=== PATIENT | female | born 1995 | race Caucasian/White ===

== ENCOUNTER 2024-03-18 14:24 | Outpatient (CLI) | payer BC, SELFPAY | END 2024-03-18 14:25 | disposition home or self-care (01) | PROVIDERS: Visit Provider Advanced Practice Midwife | DX: N39.0 Urinary tract infection, site not specified (principal); F19.11 Other psychoactive substance abuse, in remission | CPT/HCPCS: 80306; 87086 ==

== ENCOUNTER 2024-04-21 13:33 | Outpatient (CLI) | payer BC, SELFPAY | END 2024-04-21 13:34 | disposition home or self-care (01) | LOC: NFLDREF 18:55 | PROVIDERS: Visit Provider Obstetrics & Gynecology | DX: Z34.83 Encounter for supervision of other normal pregnancy, third trimester (principal) | CPT/HCPCS: 82728 ==

== ENCOUNTER 2024-05-28 16:25 | Inpatient (IN) | payer BC, SELFPAY ==
--- NOTE | 2024-05-28 16:43 | P.LDBA_ITS ---
Subjective History of Present Illness Time Seen by Provider: 16:43 Date Seen: 05/28/24 Narrative: Patient is being admitted to Labor and Delivery for induction of labor for late term gestation. She is a 28 year old at 40w6d gestation. Her full history and physical was dictated by myself on 04/29/2024. Please see this for details. Gretchen is feeling well today with no acute concerns. Denies regular/painful uterine contractions, vaginal bleeding or leaking of fluid. Endorses active movement. Denies chest pain, dyspnea, nausea/vomiting, bowel or bladder concerns, fevers or chills. Specific Issues/Plans (hx of ectopic) FOB: Ori, primarily Beninese speaking, Baby boy: Gabe Positive for marijuana at [facility], denies use since. -Does have medical card for hx of PTSD.? -UDS at transfer visit: Negative Hx of meth use, clean for last 2 years after treatment program. Negative for at [facility] and at transfer visit. -still attends meetings, is on probation -does not have custody of her first child r/t this Hx of depression & anxiety, stable at [facility] w/o medications?(medications started w/ treatment plan) Multiple UTIs in -X5, each treated with a different antibiotic (macrobid, fosfomycin, Amox/Clav). All E. Coli except the last. -UC repeated at transfer visit per her request, does not generally have symptoms (Negative) Smoker -decreased from 1/2 pack to 3 cigs/day -encouraged vitamin C GBS positive in urine 01/05 -Plan prophylaxis in labor Desires permanent sterilization - Consent signed at [facility] in February. Reaffirmed on 05/19/24 - Hx of salpingectomy for ruptured ectopic, side unknown Needs PP pap - 11/07, NIL, HPV + (other types) H&P performed by Dr. Pham on 04/29 Records from [facility]ILLER: ? LMP 08/27/23? Positive for marijuana at [facility], denies use since. Does have medical card for hx of PTSD.? Planning epidural for pain management.? Hx of salpingectomy for hx of ruptured ectopic, side unknown? Declined flu shot and genetic screening at [facility].? Hx of meth use, clean for last 2 years. New partner for this , he is from [place] and has 6 children from previous relationships.? Hx of depression & anxiety, stable at [facility] w/o medications? ? IMAGING:??? 1st trimester: 11/14/23. Dated by 12.6 wk u/s, JENNIFER 05/22/24. (by LMP, JENNIFER 06/02/24)? Anatomy scan:? No abnormalities noted. Anterior placenta. EFW 19%. Vtx. 3 vessel cord. Normal fluid.? ? ?OB Labs 11/14/23:?Blood type: O+, antibody screen negative?? ?Hgb : 12.6? ?Platelets: 235? ?Rubella: positive? ?RPR: non-reactive?? ?HBsAg: negative? ?HIV: negative?? ?GC/Chlamydia: negative/negative? ?Pap (11/14/23): NIL,HPV other types positive, repeat pap/HPV PP? UDS: positive for marijuana? ?1hr gtt: 136 3hr: fasting 87, 1 hr - 170, 2 hr - 142, 3 hr - 87, all WNL hgb: 11.8 syphlilis - neg Did get tdap at last visit? Urine cultures:? 02/27/24 - Pseudomonas aeruginosa. Treated with Fosfomycin 01/30/24 - E. Coli noted? 01/02/24 - E. Coli noted? 11/14/23 - E. Coli noted ? treated with macrobid? 09/23/23 E. Coli noted? ? OB - Problem Based A/P Additional Plan (1) care: Status: Acute (2) Anemia: Status: Acute (3) Marijuana use: Problem details: Positive at [facility], stopped in . Has medical card Status: Acute (4) Methamphetamine abuse in remission: Problem details: Clean X 2 years May, still attends meetings Status: Acute (5) Smoker: Status: Acute Plan Gretchen is a 28-year-old admitted at 40w6d GA for IOL in the setting of late term gestation. is complicated by tobacco use disorder, history of substance use disorder (clean from meth x2 years, stopped THC in September), PTSD, depression, anxiety, multiple UTIs in , GBS positivity. - Start IOL with cook catheter, low dose pitocin overnight per protocol - GBS positive on a previous UC, start ampicillin with pitocin or ROM - BT O+, obtain T/S on admission - Recommend UDS on admission for history of substance use disorder. Patient expressed understanding and verbal consent provided. - Patient desires surgical sterilization, plan tubal. She did have a prior salpingectomy for an ectopic , side unknown. Plan NPO after delivery. OB Exam Physical Exam Narrative: General: Alert and oriented, no acute distress Psych: Appropriate mood and affect Abdomen: Gravid. EFW 3600g by Baldo'olivia. Cervix: 2/50/-2, cook catheter placed without difficulty heart rate: Category 1. Baseline is 140 beats per minute, moderate variability, accelerations present, decelerations absent Palouse: Milady q8m, non painful
[2024-05-28 16:58] VITALS: BMI 33.6
[2024-05-28 17:00] VITALS: BP 130/83; PULSE 97; RESP 16; TEMP 36.6
[2024-05-28 18:15] LABS: Amphetamine Screen Urine Negative (Negative); Barbiturate Screen Urine Negative (Negative); Benzodiazepines Screen Urine Negative (Negative); Cannabinoid Screen Urine Negative (Negative); Cocaine Screen Urine Negative (Negative); Methadone Screen Urine Negative (Negative); Methamphetamines Screen Urine Negative (Negative); Opiate Screen Urine Negative (Negative); Oxycodone Screen Urine Negative (Negative); Phencyclidine Screen Urine Negative (Negative); Tricyclic Antidepressant Urine Negative (Negative)
[2024-05-28 19:20] VITALS: BP 124/57; PULSE 73; TEMP 36.7
[2024-05-28 21:14] LABS: Basophils Percent Auto 0.3 % (0.0-3.0); Eosinophils Percent Auto 0.9 % (0.0-7.0); Hematocrit 36.1 % (33.0-51.0); Hemoglobin* 12.1 gm/dL (12.0-16.0); Immature Granulocytes Pct Auto 0.5 %; Lymphocytes Percent Auto 15.2 % (20-44); Mean Corpuscular HGB Conc 34 gm/dL (32-36); Mean Corpuscular Hemoglobin 27 pg (26-34); Mean Corpuscular Volume 80 fL (80-100); Monocytes Percent Auto 5.2 % (0.0-11.0); Neutrophils Percent Auto 77.9 % (42.0-72.0); Platelet Count* 232 K/uL (140-440); RDW Coefficient of Variation % 14.2 % (11.5-15.5); White Blood Count* 18.73 K/uL (4.50-11.00)
[2024-05-28 21:34] LABS: Slide Review Reflex No
[2024-05-28] MEDS: hydrOXYzine pamoate 25 MG CAPSULE 100 MG PO (22:13)
[2024-05-28] MEDS: MORPHINE 10 MG/ML inj IM (22:14)
[2024-05-29] VITALS (90 sets, daily range): BP systolic 76–129; BP diastolic 37–74; PULSE 56–115; RESP 16–18; TEMP 36.4–37.1; O2SAT 90–100
[2024-05-29] MEDS: LACTATED RINGERS 1000 ML 1,000 ML 125 ML IV ×2 (00:05→10:03)
[2024-05-29] MEDS: AMPICILLIN 2 GM in 0.9 % SODIUM CHLORIDE Mini-bag 100 ML IVPB (00:06)
[2024-05-29] MEDS: OXYTOCIN 30 unit/500 ML in NS 30 UNIT/500 ML BAG IVPB (00:06)
[2024-05-29] MEDS: AMPICILLIN 1 GM in 0.9 % SODIUM CHLORIDE Mini-bag 100 ML IVPB ×3 (03:54→12:23)
[2024-05-29] MEDS: LACTATED RINGERS 1000 ML 1,000 ML IV ×2 (04:15→05:47)
[2024-05-29] MEDS: ROPIVACAINE 0.2% 100 ml 100 ML 12 MG EPIDURAL (06:24)
[2024-05-29] MEDS: BUPIVACAINE 0.25% PF 10 ML 10 ML ML EPIDURAL (06:25)
--- NOTE | 2024-05-29 07:19 | P.ANBPRC_ITS ---
[facility] Medical History Anxiety and depression ?F41.9 - Anxiety disorder, unspecified (ICD-10) ?F32.A - Depression, unspecified (ICD-10) Ectopic ?O00.90 - Unspecified ectopic without intrauterine (ICD- 10) Surgical History History of salpingectomy ?Z90.79 - Acquired absence of other genital organ(s) (ICD-10) Badger teeth extracted ?K08.409 - Partial loss of teeth, unspecified cause, unspecified class (ICD- 10) Family History Mother Lung cancer Social History Narrative: SOCIAL? ? Education: high school ? ? 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 ? Partner: Ori, fork heavy lift rigger, not . New partner for this , he is from [place] and has 6 children [facility]?? ? Lives with: Ori. Does not have custody of previous child. R/t previous meth use. ? ? Pets: denies? ? Abuse: Denies past. Unable to assess current, partner present? ? Special Diet: Denies? ? Ok with a blood transfusion: yes? ? Culture or church beliefs: denies? RISK FACTORS? ? Exercise Times/wk: denies? ? Depression/Anxiety: previously - put on medication when she entered a treatment program. Has not taken medication in 2 years, feels stable at this time. Does not currently meet with counselors, but does attend meetings and is on probation. SPIKE: 3 PHQ 9: 2? ? Seat Belt Use: Routinely ? Smoking: Currently smokes. About 3 cigs/day. Previously smoked 1/2 a pack a day. Encouraged to take Vitamin C. Alcohol/day: Denies while ? ? Caffeine: 1 cup coffee or 2 sodas a day? ? Drug Use: Hx of meth, in recovery X 2 years this May. Marijuana, stopped in September. ? ? What is your current living situation?: I presently have a place to live Problems where you live: no known problems In the past 12 months, utilities in danger of being shut off: no In past 12 months, lack of transportation kept you from medical appts, meetings, work, or getting things needed for daily living: no In the past 12 mos, have been you worried that your food would run out before you had money to buy more?: never true In the past 12 mos, the food you bought just didn't last and you didn't have money to buy more?: never true Smoking Status: Current every day smoker How often does anyone, including family, friends and others, physically hurt you : never How often does anyone, including family, friends and others, insult or talk down to you: never How often does anyone, including family, friends and others, threaten you with harm: never How often does anyone, including family, friends and others, scream or curse at you: never Little interest or pleasure in doing things: not at all Feeling down, depressed, or hopeless: not at all Meds Home Medications and Allergies Home Medications ?Medication ?Instructions ?Recorded ?Confirmed ?Type vits 75-iron 28 mg-folic 1 pkg PO DAILY 03/18/24 05/28/24 History acid 800 mcg-omega3 440 mg oral pack (One Daily ) calcium carbonate (Tums) 200 mg PO BID 04/21/24 05/28/24 History Allergies Allergy/AdvReac Type Severity Reaction Status Date / Time No Known Drug Allergies Allergy Verified 05/27/24 13:37 Results Labs Labs: Laboratory Results - last 24 hr 05/28/24 05/28/24 17:53 21:10 WBC 18.73 H RBC 4.50 Hgb 12.1 Hct 36.1 MCV 80 MCH 27 MCHC 34 RDW Coeff of Josee 14.2 Plt Count 232 Neut % (Auto) 77.9 H Lymph % (Auto) 15.2 L Ogle % (Auto) 5.2 Eos % (Auto) 0.9 Baso % (Auto) 0.3 Neut # (Auto) 14.60 H Lymph # (Auto) 2.80 Ogle # (Auto) 1.00 H Eos # (Auto) 0.20 Baso # (Auto) 0.10 Abs Immat Gran (auto) 0.10 Imm/Tot Granulo (auto) 0.5 Urine Opiates Screen Negative Ur Oxycodone Screen Negative Urine Methadone Screen Negative Ur Barbiturates Screen Negative U Tricyclic Antidepress Negative Ur Phencyclidine Scrn Negative Ur Amphetamines Screen Negative U Methamphetamines Scrn Negative U Benzodiazepines Scrn Negative Urine Cocaine Screen Negative U Marijuana (THC) Screen Negative Ur Drug Screen Comment See Note Blood Type O Positive Antibody Screen NEGATIVE Vital Signs Vital Signs: Last Vital Signs Temp 97.9 F 05/29/24 06:27 Pulse 76 05/29/24 07:15 Resp 16 05/28/24 17:00 BP 108/58 L 05/29/24 07:15 Pulse Ox 98 05/29/24 07:15 Weight: 80.739 kg Height: 154.94 cm Anesthesia Procedures Epidural Insertion Patient Location: OB Start Time: 06:00 Stop Time: 06:45 Start Date: 05/29/24 Stop Date: 05/29/24 Reason for Block: procedure for pain Patient Position: sitting Performed By: Humphrey Araya Preanesthetic Checklist: IV checked, risks and benefits discussed, surgical consent, monitors and equipment checked, pre-op evaluation, timeout performed and anesthesia consent Prep: chlorhexidine gluconate Monitoring: blood pressure monitoring, continuous pulse oximetry and heart rate Approach: midline Vertebral Space: lumbar (1-5) Epidural Technique: EDUARDO saline Needle Type: Tuohy needle Injection Technique: continuous catheter Needle gauge: 17 Needle Length (cm): 10 cm Needle Insertion Depth (cm): 6 Catheter Gauge: 19 Catheter Type: multi-orifice Catheter at skin depth (cm): 12 Test Dose Result: negative and lidocaine 1.5% with epinephrine 1 to 200,000
--- NOTE | 2024-05-29 07:25 | P.OBPN_ITS ---
Subjective Time Seen by Provider: 07:25 Date Seen: 05/29/24 Narrative: Subjective: Patient is comfortable w/ epidural.. Pitocin: Off due to episode of minimal variability with intermittent late decelerations in the rehabilitation services coordinator hours. heart tones are now reassuring. Verbal consent obtained for artificial rupture of membranes Vital signs: Per electronic medical record. EFM: Baseline 130s, positive accelerations, negative decelerations, moderate variability, reactive. Category 1. [place]: Contractions every 2-3 minutes. SVE: 6 cm/80 %/-1. AROM: Clear fluid Assessment: 28-year-old 3 para 1011 at 41 weeks 0 days gestation undergoing induction of labor for post-dates Plan: 1. Continue with Pitocin off for now as contractions are frequent and heart rate tracing is reassuring. 2. Continue epidural for labor analgesia 3. Patient desires salpingectomy for contraception. Objective Vital Signs: Last Vital Signs Temp 97.9 F 05/29/24 06:27 Pulse 76 05/29/24 07:15 Resp 16 05/28/24 17:00 BP 108/58 L 05/29/24 07:15 Pulse Ox 90 05/29/24 07:23
[2024-05-29] MEDS: PHENYLEPHRINE 100 MCG/ML SYRINGE IVP ×5 (08:18→08:52)
[2024-05-29] MEDS: ePHEDrine sulfate 5 MG/ML inj 10 MG IVP ×3 (08:47→09:08)
--- NOTE | 2024-05-29 11:02 | PM.OBPNL ---
Subjective Time Seen by Provider: 10:45 Date Seen: 05/29/24 Narrative: Subjective: Patient is comfortable w/ epidural. Pitocin: 1 milliunits/minute. I was called to see the patient for minimal variability and 2 late-appearing decelerations in the heart rate. Verbal consent obtained to place internal monitors. Vital signs: Per electronic medical record. FSE: Baseline 130's, 2 accelerations with placement of IUPC and FSE. Sporadic late and small variable decelerations. Minimal to moderate variability. Category 2 IUPC: Contractions every 2-5 minutes. SVE: 6 cm/90 %/-1. Assessment: 28-year-old 2 para 1 at 41 weeks 0 days gestation undergoing induction of labor for postdates gestation. Plan: 1. Continue Pitocin per labor protocol 2. Continue to closely monitor status, currently reassuring Objective Vital Signs: Last Vital Signs Temp 98.2 F 05/29/24 09:00 Pulse 80 05/29/24 10:47 Resp 18 05/29/24 09:00 BP 113/62 05/29/24 10:47 Pulse Ox 100 05/29/24 09:08
[2024-05-29] MEDS: miSOPROStoL 800 MCG/4 TABLET PR (14:15)
--- NOTE | 2024-05-29 14:29 | PC.SOCIAL ---
Camera Prototyping Engineer Consult: Received a consult/referral for the pt for substance abuse screening. Pt's tox screen from 05/28/2024 is negative for all substances. Currently there is nothing reportable to Child Protection Services. offal worker will check-in with pt's nurse on Sunday morning, as pt is still in labor today and the baby has not been born yet. Social work to follow-up as needed.
--- NOTE | 2024-05-29 14:43 | W.PM.VAGDEL1 ---
Procedure Delivery date: 05/29/24 Procedure Done: Global Procedure Details: Gretchen is a 28 year-old G 3 P 1011 now to admitted on 05/28/2024 at 4:30 p.m. at 40 Weeks, 6 Days gestation for induction of labor for postdates gestation. AROM occurred at 7:21 a.m. on 05/29/2024 with clear fluid. Labor Analgesia: Epidural Pitocin: Yes Labor onset: 05/29/2024 at 6:00 a.m.. Complete: 05/29/2024 at 12:57 p.m.. Pushin05/29/2024 at 1:01 p.m.. heart tones during second stage were: Category 2 with some variable decelerations with contractions but moderate variability between contractions: Reassuring. Fetus was noted to be in the LOT position in the 2nd stage and manual rotation was performed. At 2:03 p.m. a viable male infant delivered in vertex direct OA presentation over intact perineum via normal spontaneous vaginal delivery. The infant was placed on maternal abdomen. Cord was clamped and cut after a 60 second delay. Nose and mouth were bulb suctioned. weight pending. 7 at 1 minute and 9 at 5 minutes. Shoulder dystocia: No. Nuchal cord: No Placenta delivered spontaneously and complete at 2:11 p.m. with a 3 vessel cord. There was mild lower uterine segment atony identified that was treated with uterine massage, 30 units Pitocin in 500 mL IV fluid 300 mL/hour and 800 mg Cytotec rectally. Laceration(s): None. Blood loss: 200 mL. Blood loss measurement type: Quantitative Sponge and needles counts are correct. Specimen: None Mother and infant were stable after delivery. Infant's name: Gabe The patient is planning on breast feeding. The patient would like a salpingectomy for contraception the operating room was contacted to have this scheduled tomorrow morning, Dr. Saldana will be assuming care at 7Am. Events: Labor Induction Intrapartal Events: Labor Induction Delivery monitor: internal FHT and internal uterine Route of delivery: Laceration description: None Estimated blood loss (mL): 200 Anesthesia type: Epidural Disposition: floor
[2024-05-29] MEDS: IBUPROFEN 600 MG TABLET PO ×2 (15:17→21:14)
[2024-05-29] MEDS: ACETAMINOPHEN 500 MG TABLET 1000 MG PO (18:17)
[2024-05-30] VITALS (21 sets, daily range): BP systolic 96–120; BP diastolic 55–76; PULSE 52–89; RESP 16–20; TEMP 36.4–37.1; O2SAT 97–99
[2024-05-30] MEDS: ACETAMINOPHEN 500 MG TABLET 1000 MG PO ×3 (00:12→22:09)
[2024-05-30] MEDS: IBUPROFEN 600 MG TABLET PO ×2 (03:17→19:01)
[2024-05-30] MEDS: 5 % DEXTROSE/0.45% SOD CHLOR 1,000 ML 125 ML IV (04:27)
--- NOTE | 2024-05-30 05:49 | PC.NURSE ---
urine drug screen collected per protocol on 05/30/2024 at 0440. Specimen walked down to lab and handed to staff.
[2024-05-30 06:40] LABS: Hemoglobin* 10.4 gm/dL (12.0-16.0)
[2024-05-30] MEDS: DOCUSATE SODIUM 100 MG CAPSULE PO (08:29)
--- NOTE | 2024-05-30 08:40 | PM.OBPNVD1 ---
OB - PN:Subj Subjective Time Seen by Provider: 08:40 Date Seen: 05/30/24 Narrative: Overnight patient had no complaints. Her pain is well controlled on oral pain medications. She is tolerating a regular diet. She has passed flatus. She is ambulating without difficulty. Lochia is scant. She is urinating without olivares. Patient denies chest pain, SOB, n/v, headache, RUQ pain, vision changes, dizziness. She reports that this delivery was easier than her last. We discussed sterilization. I showed her where my incision would be (below the umbilicus). We also discussed risk of surgery including pain, bleeding, infection, and damages to the surrounding structures of the operative site. Depending on the extent of her adhesions form her ectopic , I might have to extend her incision. We also reviewed postoperative expectations and recovery course. After counseling patient would like to proceed. Consents signed and surgical scheduling form filled out. OB - PN: Obj Exam Physical Exam: Vital signs: Temp Pulse Resp BP Pulse Ox O2 Del Method 98.1 F 73 16 105/66 99 Room Air 05/30/24 08:02 05/30/24 08:02 05/30/24 08:02 05/30/24 08:02 05/30/24 08:02 05/30/24 08:02 Narrative: Physical exam: General: No acute distress Psych: Alert and oriented x4, full affect HEENT: Normocephalic, atraumatic Neck: No cervical adenopathy, no thyromegaly Heart: Regular rate and rhythm, no murmur rub or gallop Lungs: Clear to auscultation bilaterally Abdomen: Soft, no tenderness, rebound, or guarding. Uterus 1 cm below umbilicus, firm. Skin: No lesions or rashes Lower extremities: No edema or erythema Pelvic exam: Deferred OB - PN: Obj Data Labs Labs: Laboratory Results - last 24 hr 05/30/24 06:19 Hgb 10.4 L OB - PN: A/P Delivery Assessment and Plan (1) Unwanted fertility: Status: Acute Assessment and Plan: - Plan for salpingectomy today at noon - Currently NPO (2) Anemia: Status: Acute Assessment and Plan: - Acute blood loss anemia - EBL 200 - Hgb 12.1 (05/28/24) --> 10.4 (05/30/24) - PO iron (3) Marijuana use: Problem details: Positive at [facility], stopped in . Has medical card Status: Acute (4) Methamphetamine abuse in remission: Problem details: Clean X 2 years May, still attends meetings Status: Acute (5) Smoker: Status: Acute (6) (normal spontaneous vaginal delivery): Status: Acute
[2024-05-30] MEDS: LACTATED RINGERS 1000 ML 1,000 ML 100 ML IV (12:50)
--- NOTE | 2024-05-30 13:02 | PC.SOCIAL ---
Addendum entered by EAGLE Bar 05/30/24 15:21: Discharge planning: After hours/weekend/emergency CPS professor of social work for [facility] phone number is #[phone]. Social work to follow-up as needed. Addendum entered by EAGLE Bar 05/30/24 14:38: Social work consult: A Child Protection Report was filed with [facility] this morning. reforestation worker gave the report to Gwendolyn at [facility]. reforestation worker explained pt's history of substance use and child removal and Gwendolyn shared that they would investigate the case. reforestation worker faxed the written report to [facility] at #[phone]. reforestation worker also sent the baby's tox screen results from the baby's urine that was collected this morning. Baby's urine did test positive for opiates and methamphetamine. However, pt was given morphine and phenylephrine during her delivery. Morphine is an opiate and phenylephrine breaks down into the body as methamphetamine per pt's nurse. reforestation worker did explain all of this information to Gwendolyn. reforestation worker received a call back from [facility] about an half hour later stating that the baby needed to be put on a hold and should not be discharged from the hospital. The CPS investigation worker also talked to the nurses in [facility] about this. reforestation worker received a call later this afternoon stating that they concluded, after further investigation, that the baby could go home with the pt and that the nurses in [facility] should follow-up with the county when the mother and baby are ready for discharge. Social work to follow-up as needed. Original Note: Social work consult: reforestation worker met with pt and her partner, Ori, this morning. reforestation worker provided pt with resources for [facility], specifically programs with [facility]. Pt does already have a nurse through [facility] named Norma and plans to meet with her ongoing when she returns home. reforestation worker also gave the pt information on [facility] [employer] class in [place]. Pt lives about fifteen minutes from [place]. Even though pt lives in [facility], she is allowed to attend [facility] class in [place]. Pt stated that she plans to attend the class. Pt also plans to sign up for WIC through [facility]. Pt was thankful for the information and resources. Social work to follow-up as needed.
[2024-05-30] MEDS: BUPIVACAINE 0.5 %/EPI 1:200K 30 ML INJECTION (13:47)
--- NOTE | 2024-05-30 13:59 | W.ANESCHARGE ---
Anesthesia Charges Start Date/Time Anesthesia Start Date: 05/30/24 Anesthesia Start Time: 12:50 Stop Date/Time Anesthesia Stop Date: 05/30/24 Anesthesia Stop Time: 14:01
[2024-05-30] MEDS: fentaNYL 100 MCG/2 ML inj 50 MCG IVP ×3 (14:18→15:07)
--- NOTE | 2024-05-30 14:22 | P.GYNPRC_ITS ---
Procedure Note Time Seen by Provider: 13:00 Date of procedure: 05/30/24 Will [facility] bill your pro fee for this procedure?: Yes Pre-op diagnosis: 1. Unwanted fertility, desires permanent sterilization Post-op diagnosis: 1. Unwanted fertility, desires permanent sterilization Procedure: Preoperative diagnosis: Gretchen is a 28-year-old 3 now para 2011 who desires permanent sterilization, day 1. Postoperative diagnosis: Same. Procedure: Mini laparotomy with unilateral right salpingectomy Anesthesia: Spinal Surgeon: Lisa Saldana MD EBL: 10 mL Specimen: Right fallopian tube was sent to pathology. Left fallopian tube surgically absent from previous left salpingectomy due to ectopic . Findings: Increased central adiposity. The fundus was noted to be 1 cm below the umbilicus. The uterus, bilateral fallopian tubes and ovaries all appeared normal. Procedure: Patient was taken to the operating room where spinal was found to be adequate. Patient voided prior to coming into the OR. She was placed in the dorsal supine position and an exam under anesthesia was performed with findings stated above. She was then prepped and draped in a normal sterile manner. A 4 cm incision was made inferior to the umbilicus. This was carried through to the underlying layer of fascia sharply with scalpel. The fascia was identified, grasped with 2 Marleny clamps and divided with scalpel. This incision was extended laterally bluntly. The peritoneum was identified and entered bluntly as it was filmy and translucent. The patient was placed in a slight Trendelenburg position. The right ovary was grasped and brought to the incision. The right fallopian tube was identified and grasped with 2 Maddie clamps. The fallopian tube was removed by performing serial pedicles with the hand-held LigaSure dissecting forceps. The fallopian tube was removed from the uterus at the cornual aspect. Excellent hemostasis was noted. Left fallopian tube surgically absent. The left round ligament was identified and followed to the pelvic side wall. The left ovary was identified to ensure no residual fimbria. The fascia was reapproximated using 0 Vicryl in a running manner. The subcutaneous tissue was irrigated with a small amount of saline and bipolar cautery used to obtain hemostasis. Continuous running sutures of 2-0 chromic were placed in the subcutaneous tissue to prevent space. The skin was reapproximated using 4-0 Monocryl and a running subcuticular manner. Exofin adhesive bandage were then applied. The patient tolerated this procedure well. Sponge, lap and instrument counts were correct x2 at the end of the procedure and the patient was taken to the recovery area in stable condition.
--- NOTE | 2024-05-30 14:33 | SUR.PHASEI ---
50cc iv fluid given in PACU
--- NOTE | 2024-05-30 14:41 | PC.CPCO ---
Addendum entered by EAGLE Bar 05/30/24 15:23: Discharge planning: After hours/weekend/emergency CPS social service assistant for [facility] phone number is #[phone]. Social work to follow-up as needed. Original Note: Social work consult: A Child Protection Report was filed with [facility] this morning. demurrage worker gave the report to Gwendolyn at [facility]. demurrage worker explained pt's history of substance use and child removal and Gwendolyn shared that they would investigate the case. demurrage worker faxed the written report to [facility] at #[phone]. demurrage worker also sent the baby's tox screen results from the baby's urine that was collected this morning. Baby's urine did test positive for opiates and methamphetamine. However, pt was given morphine and phenylephrine during her delivery. Morphine is an opiate and phenylephrine breaks down into the body as methamphetamine per pt's nurse. demurrage worker did explain all of this information to Gwendolyn. demurrage worker received a call back from [facility] about an half hour later stating that the baby needed to be put on a hold and should not be discharged from the hospital. The CPS investigation worker also talked to the nurses in [facility] about this. demurrage worker received a call later this afternoon stating that they concluded, after further investigation, that the baby could go home with the pt and that the nurses in [facility] should follow-up with the county when the mother and baby are ready for discharge. Social work to follow-up as needed.
--- NOTE | 2024-05-30 14:53 | W.ANESCHARGE ---
Anesthesia Charges Start Date/Time Anesthesia Start Date: 05/30/24 Anesthesia Start Time: 12:50 Stop Date/Time Anesthesia Stop Date: 05/30/24 Anesthesia Stop Time: 14:01
[2024-05-30] MEDS: FERROUS SULFATE 325 MG TABLET PO (15:19)
[2024-05-30] MEDS: OXYCODONE 5 MG TABLET PO ×2 (16:30→20:33)
[2024-05-30] MEDS: SIMETHICONE 80 MG TAB.CHEW PO (20:34)
[2024-05-31 01:21] LABS: Rapid Plasma Reagin (RPR) Non Reactive (Non Reactive)
[2024-05-31] MEDS: IBUPROFEN 600 MG TABLET PO ×3 (01:27→13:01)
[2024-05-31] MEDS: OXYCODONE 5 MG TABLET PO ×3 (01:27→09:46)
[2024-05-31] MEDS: ACETAMINOPHEN 500 MG TABLET 1000 MG PO ×2 (04:09→10:48)
[2024-05-31 04:12] VITALS: BP 111/70; PULSE 68; RESP 16; TEMP 36.6; O2SAT 98
[2024-05-31 08:30] VITALS: BP 105/59; PULSE 65; RESP 16; TEMP 36.6; O2SAT 99
[2024-05-31] MEDS: FERROUS SULFATE 325 MG TABLET PO (08:34)
[2024-05-31] MEDS: DOCUSATE SODIUM 100 MG CAPSULE PO (08:34)
--- NOTE | 2024-05-31 10:18 | PM.OBDSVD1 ---
DS: Providers Provider Date Seen: 05/31/24 Date of admission: 05/28/24 16:25 Primary care physician: Not a Local Provider Admitting Clinician: Qi Pham MD Consults: 05/28/24 16:56 Consult to [employer] [CONS] Routine Comment: Reason for Consult:: Substance Abuse Screening Attending Physician on discharge: Melissa Maxwell MD Date of Discharge: 05/31/24 DS: Diagnosis Discharge Diagnosis (1) (normal spontaneous vaginal delivery): Status: Acute (2) Status post bilateral salpingectomy: Status: Acute Problem details: right salpingectomy via mini laparotomy . Left salpingectomy in 2017 for ectopic Exam Narrative: Exam Narrative: General: Pleasant, no acute distress Heart: Regular rate and rhythm, no murmur or gallop Lungs: Clear to auscultation bilaterally Abdomen: Incision with deep purple bruising, otherwise intact. Appropriately tender. Normoactive bowel sounds. Fundus at umbilicus. Lower extremities: Trace bilateral edema, no erythema Const: Vital Signs, click to edit/add: Vital Signs - 24 hr 05/30/24 11:52 05/30/24 13:56 05/30/24 14:00 Temperature 98.8 F 97.6 F Pulse Rate 89 Pulse Rate [Pulse Oximeter] 76 Respiratory Rate 16 20 16 Blood Pressure 101/58 L 101/63 Blood Pressure [Le ft Arm] 108/68 Pulse Oximetry 99 97 97 Oxygen Delivery Me thod Room Air Room Air Room Air 05/30/24 14:05 05/30/24 14:10 05/30/24 14:15 Temperature Pulse Rate 69 70 60 Pulse Rate [Pulse Oximeter] Respiratory Rate 16 16 16 Blood Pressure 104/63 105/60 101/70 Blood Pressure [Le ft Arm] Pulse Oximetry 97 97 98 Oxygen Delivery Me thod Room Air Room Air Room Air 05/30/24 14:20 05/30/24 14:25 05/30/24 14:30 Temperature Pulse Rate 54 L 62 54 L Pulse Rate [Pulse Oximeter] Respiratory Rate 16 16 16 Blood Pressure 105/57 L 106/69 107/64 Blood Pressure [Le ft Arm] Pulse Oximetry 98 99 99 Oxygen Delivery Me thod Room Air Room Air Room Air 05/30/24 14:35 05/30/24 14:48 05/30/24 15:02 Temperature 97.6 F Pulse Rate 52 L 57 L 59 L Pulse Rate [Pulse Oximeter] Respiratory Rate 16 16 16 Blood Pressure 112/68 112/68 111/63 Blood Pressure [Le ft Arm] Pulse Oximetry 99 97 99 Oxygen Delivery Me thod Room Air Room Air Room Air 05/30/24 15:17 05/30/24 15:31 05/30/24 15:56 Temperature Pulse Rate 66 62 64 Pulse Rate [Pulse Oximeter] Respiratory Rate 16 16 16 Blood Pressure 112/67 120/76 112/71 Blood Pressure [Le ft Arm] Pulse Oximetry 98 99 99 Oxygen Delivery Me thod Room Air Room Air Room Air 05/30/24 16:28 05/30/24 17:22 05/30/24 20:28 Temperature 97.8 F 98 F Pulse Rate 71 70 Pulse Rate [Pulse Oximeter] 60 Respiratory Rate 16 16 16 Blood Pressure 110/67 111/69 Blood Pressure [Le ft Arm] 105/68 Pulse Oximetry 99 98 99 Oxygen Delivery Me thod Room Air Room Air Room Air 05/31/24 04:12 05/31/24 08:30 Temperature 98 F 98 F Pulse Rate Pulse Rate [Pulse Oximeter] 68 65 Respiratory Rate 16 16 Blood Pressure Blood Pressure [Le ft Arm] 111/70 105/59 L Pulse Oximetry 98 99 Oxygen Delivery Me thod Room Air Room Air OB - DS: Summary Hospital Course Hospital Course: Liudmila is a 28-year-old G3 now P 2-0-1-2 woman who is status post normal spontaneous vaginal delivery on 05/29/2024 at 40 weeks, 6 days gestation. She gave to a male . She had no perineal lacerations. On 05/30/2024, she had sterilization via mini laparotomy with unilateral right salpingectomy, as her left tube was surgically absent from previous salpingectomy. She is breast feeding. the patient has done well. Today, on day 2, she has no complaints. Pain is well managed. She denies any heavy bleeding. She is tolerating regular diet and is passing flatus. Her infant son just had an echocardiogram, and we are awaiting results. Peripartum Data Infant delivery method: Vaginal Laceration description: None Episiotomy description: None Procedures: Procedures Operation Date: 05/30/24 13:00 Actual Procedure Side Surgeon p Post UNILATERAL Tubal Ligation - RIGHT SIDE ONLY Right Lisa B Vu, MD Procedures: tubal ligation/salpingectomy complications: none [place] Gender: Male Time Spent with Patient Time attestation: Total time spent providing and/or coordinating discharge services: Time spent: Less than 30 minutes Discharge Plan Discharge Disposition: Home, Self-Care Date of Admission: 05/28/24 16:25 Attending Provider on Discharge: Melissa Maxwell Primary Care Provider: Provider,Not a Local Condition: Stable Anticipated Discharge Date/Time: 05/31/24 10:24 Discharge Medications: New ferrous sulfate 325 mg (65 mg iron) Tablet 325 mg PO Q48H Qty: 30 0RF docusate sodium 100 mg Capsule 100 mg PO BID PRNQty: 60 0RF ibuprofen 600 mg Tablet 600 mg PO Q6H PRNQty: 60 0RF oxycodone 5 mg Tablet 5 mg PO Q4H PRN (Reason: Pain) Qty: 10 0RF acetaminophen 500 mg Tablet 1,000 mg PO Q6H PRNQty: 0 0RF Continued One Daily [id number] mg-mcg-mg combo pack 1 pkg PO DAILY calcium carbonate [Tums] 200 mg calcium (500 mg) tablet,chewable 200 mg PO BID fluocinolone 0.025 % ointment 1 applic topical BID PRN (Reason: Psoriasis) Qty: 60 0RF Discharge Orders: Discharge Order (Routine); Ordered 05/31/24 Ordered By: Melissa Maxwell Patient Education: Salpingectomy (DC), OB Vaginal/Breast Feeding Activity Detail: Avoid lifting more than 20 lbs for 4 weeks. Discharge Diet: Regular Follow Up Appointments: Melissa Maxwell MD [Staff Physician] - Provider,Not a Local [Primary Care Provider] - Forms: View3 Info Instructions DS:Data Additional Comments Additional comments: Hemoglobin 10.4 on 05/30/2024
== END 2024-05-31 14:15 | disposition home or self-care (01) | DRG 541 ==
PROVIDERS: Obstetrics & Gynecology; Admitting Provider Obstetrics & Gynecology; Visit Provider Obstetrics & Gynecology
PROC: 0UT50ZZ Resection of Right Fallopian Tube, Open Approach (ICD-10-PCS; CPT 58605; principal; 2024-05-30 13:00)
DX: O48.0 Post-term pregnancy (principal); O62.2 Other uterine inertia; O76 Abnormality in fetal heart rate and rhythm complicating labor and delivery; O90.81 Anemia of the puerperium; D62 Acute posthemorrhagic anemia; O99.824 Streptococcus B carrier state complicating childbirth; O99.344 Other mental disorders complicating childbirth; F12.90 Cannabis use, unspecified, uncomplicated; O99.334 Smoking (tobacco) complicating childbirth; F17.210 Nicotine dependence, cigarettes, uncomplicated; Z87.440 Personal history of urinary (tract) infections; F15.11 Other stimulant abuse, in remission; F41.9 Anxiety disorder, unspecified; F43.10 Post-traumatic stress disorder, unspecified; F32.A Depression, unspecified; Z30.2 Encounter for sterilization; Z90.79 Acquired absence of other genital organ(s); Z37.0 Single live birth; Z3A.40 40 weeks gestation of pregnancy
CPT/HCPCS: 00851; 01967; 36415; 59200; 80306; 85018; 85025; 86592; 86850; 86900; 86901; 88302; A9270; C1726; J0290; J0665; J1100; J2270; J2371; J2405; J2704; J2795; J3010; J3490; J7120; S5010

== ENCOUNTER 2024-07-09 13:30 | Outpatient (CLI) | payer BC, SELFPAY ==
[2024-07-18 00:32] LABS: HPV Source Cervix; HPV, High Risk by TMA Detected
[2024-07-18 20:27] LABS: HPV Genotype 16 by TMA Not Detected; HPV Genotype 18/45 by TMA Not Detected; HPV Reflex Billing Y; HPVG Source Cervix
== END 2024-07-09 13:31 | disposition home or self-care (01) ==
PROVIDERS: Visit Provider Registered Nurse
DX: Z39.2 Encounter for routine postpartum follow-up (principal); Z12.4 Encounter for screening for malignant neoplasm of cervix
CPT/HCPCS: 87624; 87625; 88141; 88142

== ENCOUNTER 2024-08-15 06:31 | Outpatient (CLI) | payer BC, SELFPAY | END 2024-08-15 06:32 | disposition home or self-care (01) | PROVIDERS: Visit Provider Family Medicine | DX: N30.00 Acute cystitis without hematuria (principal); B96.20 Unspecified Escherichia coli [E. coli] as the cause of diseases classified elsewhere | CPT/HCPCS: 87086; 87186 ==